=== PATIENT | female | born 1995 | race Caucasian/White ===

== ENCOUNTER 2016-12-09 15:58 | Emergency (ER) | payer BC ==
--- NOTE | 2016-12-09 17:03 | UC ---
Skin Complaint HPI - HPI Summary HPI Summary: TATTOO APPLIED TO LEFT ANKLE ON 11/21/16. SOME TIME LATER 11/28/16 RECEIVED CUT TO LEFT ANKLE FROM UNKNOWN SOURCE. CUT HAS HAD CHALLENGING TIME HEALING. TENDERNESS AND REDNESS WORSENING OVER LAST FEW DAYS. NO FEVER. POSSIBLE DISCHARGE. NO HISTORY OF MRSA. - History of Current Complaint Chief Complaint: UCSkin Time Seen by Provider: 12/09/16 16:35 Stated Complaint: LEFT FOOT CUT BY TATTOO Hx Obtained From: Patient Hx Last Menstrual Period: 11/27/16 Onset/Duration: Gradual Onset, Lasting Weeks Skin Exposure Onset/Duration: Days Ago Onset Severity: Mild Current Severity: Mild Location: Discrete Character: Redness, Painful Aggravating Factor(s): Touch Alleviating Factor(s): Nothing Associated Signs & Symptoms: Positive: Drainage, Tenderness, Red Streaks. Negative: Fever, Chills, Cough, Wheezing, Hoarseness, Throat Tightening, Rash, Bruising Related History: Trauma - Allergy/Home Medications Allergies/Adverse Reactions: Allergies Allergy/AdvReac Type Severity Reaction Status Date / Time No Known Allergies Allergy Verified 12/09/16 16:39 Review of Systems Constitutional: Negative Skin: Rash Eyes: Negative ENT: Negative Respiratory: Negative Cardiovascular: Negative Gastrointestinal: Negative Genitourinary: Negative Motor: Negative Neurovascular: Negative Musculoskeletal: Negative Neurological: Negative Psychological: Negative Is Patient Immunocompromised?: No All Other Systems Reviewed And Are Negative: Yes PMH/Surg Hx/FS Hx/Imm Hx Previously Healthy: Yes - Surgical History Surgical History: None - Family History Known Family History: Negative: Blood Disorder - Social History Occupation: Student Lives: With Family Alcohol Use: Weekly Alcohol Amount: weekends Substance Use Type: Marijuana Substance Use Comment - Amount & Last Used: occasional Smoking Status (MU): Never Smoked Tobacco Physical Exam Triage Information Reviewed: Yes Appearance: Well-Appearing, No Pain Distress, Well-Nourished Vital Signs: Initial Vital Signs Temp 97.6 F 12/09/16 16:35 Pulse 92 12/09/16 16:35 Resp 18 12/09/16 16:35 BP 123/73 12/09/16 16:35 Pulse Ox 100 12/09/16 16:35 Vital Signs Reviewed: Yes Eye Exam: Normal ENT Exam: Normal ENT: Positive: Normal ENT inspection Dental Exam: Normal Neck exam: Normal Respiratory Exam: Normal Cardiovascular Exam: Normal Cardiovascular: Positive: RRR, No Murmur, Pulses Normal Abdominal Exam: Normal Musculoskeletal Exam: Normal Neurological Exam: Normal Psychological Exam: Normal Skin Exam: Normal Course/Dx - Differential Diagnoses - Skin Complaint Differential Diagnoses: Cellulitis, MRSA - Diagnoses Provider Diagnoses: CELLULITIS LEFT ANKLE Discharge - Discharge Plan Condition: Stable Disposition: HOME Prescriptions: Cephalexin CAP* [Keflex CAP*] 500 mg PO TID #21 cap Patient Education Materials: Cellulitis (ED) Referrals: [facility] [place] [facility] [Outside]
--- NOTE | 2016-12-11 13:54 | UC ---
Progress - Progress Note Progress Note: wound culture : + MRSA please have the pt. stop Cephalaxin will ERX Bactrim DS 2 x per day x 10 days
== END 2016-12-09 17:05 | disposition home or self-care (01) ==
LOC: UCCORT 15:58
DX: L03.116 Cellulitis of left lower limb (principal); F12.90 Cannabis use, unspecified, uncomplicated; W45.8XXA Other foreign body or object entering through skin, initial encounter; Y93.89 Activity, other specified; Y92.89 Other specified places as the place of occurrence of the external cause
CPT/HCPCS: 87070; 87077; 87186; 87205; 99202; G0463

== ENCOUNTER 2017-04-13 11:47 | Emergency (ER) | payer BC ==
[2017-04-13 12:58] VITALS: BP 118/70
--- NOTE | 2017-04-13 13:21 | UC ---
Throat Pain/Nasal Nehemias HPI - HPI Summary HPI Summary: SORE THROAT X 2 DAYS + FEVER, CHILLS, BODY ACHES NO RUNNY NOSE, NO COUGH - History of Current Complaint Chief Complaint: UCGeneralIllness Stated Complaint: SORE THROAT,CHILLS Time Seen by Provider: 04/13/17 13:02 Hx Obtained From: Patient Hx Last Menstrual Period: 2months ago ?: No Onset/Duration: Gradual Onset, Still Present Severity: Severe Pain Intensity: 6 Cough: None Associated Signs & Symptoms: Positive: Fever. Negative: Dysphagia, Wheezing, Hoarseness, Sinus Discomfort, Nasal Discharge - Allergies/Home Medications Allergies/Adverse Reactions: Allergies Allergy/AdvReac Type Severity Reaction Status Date / Time No Known Allergies Allergy Verified 04/13/17 12:58 PMH/Surg Hx/FS Hx/Imm Hx Previously Healthy: Yes - Surgical History Surgical History: None - Family History Known Family History: Negative: Blood Disorder - Social History Alcohol Use: Weekly Alcohol Amount: weekends Substance Use Type: Marijuana Substance Use Comment - Amount & Last Used: occasional Smoking Status (MU): Never Smoked Tobacco Review of Systems Constitutional: Fever, Chills, Fatigue Skin: Negative Eyes: Negative ENT: Sore Throat Respiratory: Negative Cardiovascular: Negative Gastrointestinal: Negative Is Patient Immunocompromised?: No All Other Systems Reviewed And Are Negative: Yes Physical Exam Triage Information Reviewed: Yes Appearance: Well-Appearing, No Pain Distress, Well-Nourished Vital Signs: Initial Vital Signs Temp 99.2 F 04/13/17 12:54 Pulse 113 04/13/17 12:54 Resp 18 04/13/17 12:54 BP 118/70 04/13/17 12:54 Pulse Ox 100 04/13/17 12:54 Vital Signs Reviewed: Yes Eyes: Positive: Conjunctiva Clear ENT: Positive: Normal ENT inspection, Hearing grossly normal, Pharyngeal erythema, TMs normal, Tonsillar swelling, Tonsillar exudate. Negative: Nasal congestion, Nasal drainage, Trismus Neck: Positive: Supple, Nontender, No Lymphadenopathy Respiratory: Positive: Chest non-tender, Lungs clear, Normal breath sounds, No respiratory distress Cardiovascular: Positive: RRR, No Murmur, Pulses Normal Abdominal Exam: Normal Abdomen Description: Positive: Nontender, No Organomegaly, Soft Skin Exam: Normal Throat Pain/Nasal Course/Dx - Differential Dx/Diagnosis Provider Diagnoses: STREP PHARYNGITIS Discharge - Discharge Plan Condition: Stable Disposition: HOME Prescriptions: Amoxicillin PO (*) [Amoxicillin 875 MG (*)] 875 mg PO BID #20 tab Patient Education Materials: Strep Throat (ED) Forms: *School Release Referrals: No Primary Care Phys,NOPCP [Primary Care Provider] - If Needed
== END 2017-04-13 13:23 | disposition home or self-care (01) ==
LOC: UCCORT 11:47
DX: J02.0 Streptococcal pharyngitis (principal)
CPT/HCPCS: 87651; 99212; G0463

== ENCOUNTER 2017-10-15 17:11 | Emergency (ER) | payer BC ==
[2017-10-15 19:04] VITALS: BP 140/81
--- NOTE | 2017-10-15 19:35 | UC ---
Complaint Female HPI - HPI Summary HPI Summary: Patient states that she's had 2 bouts of a light green vaginal discharge with itching and odor over the past 2 days. She denies having any lesions, abdominal pain or fever. Patient is sexually active but reports she uses condoms. She denies any prior history of sexually transmitted disease. - History Of Current Complaint Chief Complaint: UCGU Stated Complaint: PERSONAL Time Seen by Provider: 10/15/17 19:27 Hx Obtained From: Patient Hx Last Menstrual Period: 09/20/17 Pain Intensity: 0 Aggravating Factor(s): Nothing Alleviating Factor(s): Nothing Associated Signs And Symptoms: Positive: Vaginal Discharge. Negative: Fever - Allergies/Home Medications Allergies/Adverse Reactions: Allergies Allergy/AdvReac Type Severity Reaction Status Date / Time No Known Allergies Allergy Verified 10/15/17 19:05 PMH/Surg Hx/FS Hx/Imm Hx Previously Healthy: Yes - Surgical History Surgical History: None - Family History Known Family History: Positive: None Negative: Blood Disorder - Social History Occupation: Student Lives: Dormitory/Roommates Alcohol Use: Weekly Alcohol Amount: weekends 5-10 Substance Use Type: Marijuana Substance Use Comment - Amount & Last Used: late September 2017 Smoking Status (MU): Never Smoked Tobacco - Immunization History Vaccination Up to Date: Yes Review of Systems Constitutional: Negative Skin: Negative Eyes: Negative ENT: Negative Respiratory: Negative Cardiovascular: Negative Gastrointestinal: Negative Genitourinary: Vaginal/Penile Itching, Vaginal/Penile Discharge Motor: Negative Neurovascular: Negative Musculoskeletal: Negative Neurological: Negative Psychological: Negative Is Patient Immunocompromised?: No All Other Systems Reviewed And Are Negative: Yes Physical Exam Triage Information Reviewed: Yes Appearance: Well-Appearing Vital Signs: Initial Vital Signs Temp 97.9 F 10/15/17 18:57 Pulse 102 10/15/17 18:57 Resp 20 10/15/17 18:57 BP 140/81 10/15/17 18:57 Pulse Ox 100 10/15/17 18:57 Vital Signs Reviewed: Yes Eyes: Positive: Conjunctiva Clear ENT: Positive: Normal ENT inspection Neck: Positive: Supple, Nontender, No Lymphadenopathy Respiratory: Positive: Lungs clear, Normal breath sounds Cardiovascular: Positive: RRR, No Murmur Abdomen Description: Positive: Nontender, No Organomegaly, Soft. Negative: Distended, Guarding Bowel Sounds: Positive: Present Pelvic Exam: Positive: Other - External exam is without lesions. Speculum exam : Thick white material in the vaginal vault but no odor. Cervix is closed. Cultures obtained. No adnexal or uterine tenderness on bimanual exam and no cervical motion tenderness. Musculoskeletal: Positive: ROM Intact Neurological: Positive: Alert Psychological: Positive: Age Appropriate Behavior Skin Exam: Normal Complaint Female Dx - Course Course Of Treatment: No acute abdomen. We will treat presumptively for yeast vaginitis and pelvic cultures are pending. - Differential Dx/Diagnosis Provider Diagnoses: Vaginitis Discharge - Sign-Out/Discharge Documenting (check all that apply): Patient Departure All imaging exams completed and their final reports reviewed: No Studies - Discharge Plan Condition: Stable Disposition: HOME Prescriptions: Fluconazole 150 MG (NF) [Diflucan 150 mg (NF)] 150 mg PO ONCE #1 tab Patient Education Materials: Vaginitis (ED) Referrals: [facility] [Outside] - 7 Days - Billing Disposition and Condition Condition: STABLE Disposition: Home
== END 2017-10-15 20:16 | disposition home or self-care (01) ==
LOC: UCCORT 17:11
DX: N76.0 Acute vaginitis (principal)
CPT/HCPCS: 87480; 87491; 87510; 87591; 87661; 99212; G0463

== ENCOUNTER 2017-11-28 09:13 | Emergency (ER) | payer BC ==
[2017-11-28 09:36] VITALS: BP 127/74
--- NOTE | 2017-11-28 09:43 | UC ---
Ear Complaint HPI - HPI Summary HPI Summary: Pt c/o right ear pain that began a "few days after" having a "cold" X 1 week. . - History of Current Complaint Chief Complaint: UCEar Stated Complaint: R EAR PAIN Time Seen by Provider: 11/28/17 09:19 Hx Obtained From: Patient Hx Last Menstrual Period: 10/24/17 ?: No Onset/Duration: Gradual Onset Severity Initially: Mild Severity Currently: Moderate Pain Intensity: 7 Associated Signs/Symptoms: Positive: URI Symptoms - Allergies/Home Medications Allergies/Adverse Reactions: Allergies Allergy/AdvReac Type Severity Reaction Status Date / Time No Known Allergies Allergy Verified 10/15/17 19:05 PMH/Surg Hx/FS Hx/Imm Hx Previously Healthy: Yes - Surgical History Surgical History: None - Family History Known Family History: Positive: None Negative: Blood Disorder - Social History Occupation: Student Lives: With Family Alcohol Use: Weekly Alcohol Amount: weekends 5-10 Substance Use Type: Marijuana Substance Use Comment - Amount & Last Used: 11/26/17 Smoking Status (MU): Never Smoked Tobacco Have You Smoked in the Last Year: No - Immunization History Vaccination Up to Date: Yes Review of Systems Constitutional: Negative Skin: Negative Eyes: Negative ENT: Ear Ache, Sinus Congestion Respiratory: Cough Cardiovascular: Negative Gastrointestinal: Negative Genitourinary: Negative Motor: Negative Neurovascular: Negative Musculoskeletal: Negative Neurological: Negative Psychological: Negative Is Patient Immunocompromised?: No All Other Systems Reviewed And Are Negative: Yes Physical Exam Triage Information Reviewed: Yes Appearance: Well-Appearing Vital Signs: Initial Vital Signs Temp 98.9 F 11/28/17 09:30 Pulse 81 11/28/17 09:30 Resp 20 11/28/17 09:30 BP 127/74 11/28/17 09:30 Pulse Ox 100 11/28/17 09:30 Vital Signs Reviewed: Yes Eye Exam: Normal ENT Exam: Other ENT: Positive: Nasal congestion, TM bulging - right TM, small amount of fluid leaking through right TM. Clear fluid, TM is shiny and clear Dental Exam: Normal Neck exam: Normal Respiratory Exam: Normal Cardiovascular Exam: Normal Musculoskeletal Exam: Normal Neurological Exam: Normal Psychological Exam: Normal Skin Exam: Normal Ear Complaint Course/Dx - Differential Dx/Diagnosis Differential Diagnosis/HQI/PQRI: Cerumen Impaction, Otitis Media, Perforated TM Provider Diagnoses: right serous otitis media Discharge - Sign-Out/Discharge Documenting (check all that apply): Patient Departure All imaging exams completed and their final reports reviewed: No Studies - Discharge Plan Condition: Stable Disposition: HOME Prescriptions: Pseudoephedrine TAB* [Sudafed TAB*] 60 mg PO Q12H #14 tab Patient Education Materials: Serous Otitis Media (ED) Referrals: [facility] [Outside] - If Needed No Primary Care Phys,NOPCP [Primary Care Provider] - - Billing Disposition and Condition Condition: STABLE Disposition: Home
== END 2017-11-28 09:52 | disposition home or self-care (01) ==
LOC: UCCORT 09:13
DX: H65.91 Unspecified nonsuppurative otitis media, right ear (principal); F12.90 Cannabis use, unspecified, uncomplicated
CPT/HCPCS: 99212; G0463

== ENCOUNTER 2018-04-20 08:12 | Emergency (ER) | payer BC ==
[2018-04-20 09:00] VITALS: BP 131/71
--- NOTE | 2018-04-20 09:58 | UC ---
Eye Complaint HPI - HPI Summary HPI Summary: This is a patient who experienced mild left upper eyelid swelling since yesterday. She states this morning it was increase in swelling. She's had no recent illness. Did take Benadryl at home without improvement. - History of Current Complaint Chief Complaint: UCEye Stated Complaint: LEFT EYE COMPLAINT Time Seen by Provider: 04/20/18 09:57 Hx Obtained From: Patient Hx Last Menstrual Period: 03/2018 ?: No Onset/Duration: Gradual Onset Timing: Constant Severity Initially: Mild Severity Currently: Mild Pain Intensity: 0 Location of Injury: Eye Lid (upper) - Patient denies pain to the area only swelling of the upper eyelid Aggravating Factor(s): Nothing Alleviating Factor(s): Nothing Associated Signs And Symptoms: Positive: Negative - Is no loss - Risk Factors Penetrating Injury Risk Factor: Negative Globe Rupture Risk Factors: Negative Acute Glaucoma Risk Factors: Negative - Allergies/Home Medications Allergies/Adverse Reactions: Allergies Allergy/AdvReac Type Severity Reaction Status Date / Time No Known Allergies Allergy Verified 04/20/18 08:56 Home Medications: Home Medications diPHENhydraMINE PO* [Benadryl PO 25 MG TAB*] 25 mg PO Q6H PRN 04/20/18 [History Confirmed 04/20/18] PMH/Surg Hx/FS Hx/Imm Hx Previously Healthy: Yes - Surgical History Surgical History: None - Family History Known Family History: Positive: None Negative: Blood Disorder - Social History Occupation: Student Lives: Dormitory/Roommates Alcohol Use: Weekly Alcohol Amount: weekends Substance Use Type: None Substance Use Comment - Amount & Last Used: 11/26/17 Smoking Status (MU): Never Smoked Tobacco Have You Smoked in the Last Year: No - Immunization History Vaccination Up to Date: Yes Review of Systems All Other Systems Reviewed And Are Negative: Yes Constitutional: Positive: Negative Skin: Positive: Negative Eyes: Positive: Other - Left upper eyelid is mildly edematous but has not had any redness to the area. The patient states her vision is normal. She does not wear contact lenses. No drainage from her eyes. ENT: Positive: Negative Respiratory: Positive: Negative Cardiovascular: Positive: Negative Gastrointestinal: Positive: Negative Genitourinary: Positive: Negative Physical Exam Triage Information Reviewed: Yes Appearance: Well-Appearing, No Pain Distress, Well-Nourished Vital Signs: Initial Vital Signs Temp 98.0 F 04/20/18 08:57 Pulse 83 04/20/18 08:57 Resp 15 04/20/18 08:57 BP 131/71 04/20/18 08:57 Pulse Ox 100 04/20/18 08:57 Vital Signs Reviewed: Yes Eye Exam: Normal Eyes: Positive: Conjunctiva Clear. Negative: Discharge - PERRRLA EOMI ENT Exam: Normal Neck exam: Normal Respiratory Exam: Normal Cardiovascular Exam: Normal Musculoskeletal Exam: Normal Neurological Exam: Normal Psychological Exam: Normal Skin: Positive: Other - Left upper eyelid is mildly edematous, no erythema, no drainage. Underneath the left upper eyelid there is one small papule however it is not raised it is surrounded by mild erythema. At this point in time I believe it may be an early stye. It does not look ulcerated presently. Eye Complaint Course/Dx - Course Course Of Treatment: She has been comfortable here. I advised her to follow up at the [facility] for recheck in 24-48 hours if any worsening symptoms. - Differential Dx/Diagnosis Differential Diagnosis/HQI/PQRI: Other - Stye Provider Diagnosis: Stye Discharge - Sign-Out/Discharge Documenting (check all that apply): Patient Departure All imaging exams completed and their final reports reviewed: No Studies - Discharge Plan Condition: Good Disposition: HOME Patient Education Materials: Akbar (ED) Forms: *School Release Referrals: No Primary Care Phys,NOPCP [Primary Care Provider] - [employer] [Steve.BUSINESS, APPLICATION, OTHER] - Additional Instructions: Apply cold co,presses to eyelid several times during the day. Follow up at the [facility] if no improvement in 2-3 days - Billing Disposition and Condition Condition: GOOD Disposition: Home
== END 2018-04-20 10:18 | disposition home or self-care (01) ==
LOC: UCCORT 08:12
DX: H00.014 Hordeolum externum left upper eyelid (principal)
CPT/HCPCS: 99211; G0463

== ENCOUNTER 2018-06-05 14:04 | Emergency (ER) | payer BC ==
[2018-06-05 15:36] VITALS: BP 122/68
--- NOTE | 2018-06-05 15:45 | UC ---
Throat Pain/Nasal Nehemias HPI - HPI Summary HPI Summary: Pt c/o sudden onset of ST, blisters on soft palate and white spots on tosils. - History of Current Complaint Chief Complaint: UCGeneralIllness Stated Complaint: SORE THROAT Time Seen by Provider: 06/05/18 15:39 Hx Obtained From: Patient Hx Last Menstrual Period: approx 1 wk ago. ?: No Onset/Duration: Sudden Onset Severity: Moderate Pain Intensity: 6 Cough: None Associated Signs & Symptoms: Positive: Dysphagia - Epiglottits Risk Factors Epiglottis Risk Factors: Sudden Onset - Allergies/Home Medications Allergies/Adverse Reactions: Allergies Allergy/AdvReac Type Severity Reaction Status Date / Time No Known Allergies Allergy Verified 06/05/18 15:31 PMH/Surg Hx/FS Hx/Imm Hx Previously Healthy: Yes - Surgical History Surgical History: None - Family History Known Family History: Positive: Cardiac Disease Negative: Blood Disorder - Social History Occupation: Student Lives: Dormitory/Roommates Alcohol Use: Weekly Alcohol Amount: weekends Substance Use Type: None Substance Use Comment - Amount & Last Used: 11/26/17 Smoking Status (MU): Never Smoked Tobacco Have You Smoked in the Last Year: No - Immunization History Vaccination Up to Date: Yes Review of Systems All Other Systems Reviewed And Are Negative: Yes Constitutional: Positive: Negative Skin: Positive: Negative Eyes: Positive: Negative ENT: Positive: Sore Throat Respiratory: Positive: Negative Cardiovascular: Positive: Negative Gastrointestinal: Positive: Negative Genitourinary: Positive: Negative Motor: Positive: Negative Neurovascular: Positive: Negative Musculoskeletal: Positive: Negative Neurological: Positive: Negative Psychological: Positive: Negative Is Patient Immunocompromised?: No Physical Exam Triage Information Reviewed: Yes Appearance: Well-Appearing Vital Signs: Initial Vital Signs Temp 98.2 F 06/05/18 15:32 Pulse 98 06/05/18 15:32 Resp 16 06/05/18 15:32 BP 122/68 06/05/18 15:32 Pulse Ox 98 06/05/18 15:32 Vital Signs Reviewed: Yes Eye Exam: Normal ENT: Positive: Tonsillar exudate Dental Exam: Normal Neck exam: Normal Respiratory Exam: Normal Throat Pain/Nasal Course/Dx - Differential Dx/Diagnosis Provider Diagnosis: Mouth ulcers, Sore throat (viral) Discharge - Sign-Out/Discharge Documenting (check all that apply): Patient Departure All imaging exams completed and their final reports reviewed: No Studies - Discharge Plan Condition: Stable Disposition: HOME Prescriptions: ValACYclovir (*) [Valtrex 1 GM(*)] 1 gm PO Q12H #14 tab Patient Education Materials: Oral Mucositis (ED) Referrals: [facility] [place] [facility] [Outside] - If Needed No Primary Care Phys,NOPCP [Primary Care Provider] - - Billing Disposition and Condition Condition: STABLE Disposition: Home
== END 2018-06-05 16:19 | disposition home or self-care (01) ==
LOC: UCCORT 14:04
DX: J02.9 Acute pharyngitis, unspecified (principal); K13.79 Other lesions of oral mucosa
CPT/HCPCS: 87651; 99212; G0463

== ENCOUNTER 2018-12-17 12:46 | Emergency (ER) | payer BC ==
[2018-12-17 14:44] VITALS: BP 119/72
--- NOTE | 2018-12-17 15:02 | UC ---
Eye Complaint HPI - HPI Summary HPI Summary: Pt presents with c/o sudden onset of right eye swelling and redness that began this morning after taking a shower . Pt states that right upper eye lid was swollen and then spontaneously resolved after applying warm and cold pack to eye prior to arrival. pt denies pain, swelling or drainage at time of PE - History of Current Complaint Chief Complaint: UCEye Stated Complaint: RT EYE CONCERN Time Seen by Provider: 12/17/18 14:54 Hx Obtained From: Patient Hx Last Menstrual Period: 12/14/18 ?: No Onset/Duration: Sudden Onset, Resolved Severity Initially: Mild Severity Currently: None Pain Intensity: 0 Aggravating Factor(s): Nothing Alleviating Factor(s): Nothing Associated Signs And Symptoms: Positive: Swelling - Risk Factors Penetrating Injury Risk Factor: Negative Globe Rupture Risk Factors: Negative Acute Glaucoma Risk Factors: Negative Optic Artery Occlusion Risk Factors: Negative - Allergies/Home Medications Allergies/Adverse Reactions: Allergies Allergy/AdvReac Type Severity Reaction Status Date / Time No Known Allergies Allergy Verified 12/17/18 14:44 PMH/Surg Hx/FS Hx/Imm Hx Previously Healthy: Yes - Surgical History Surgical History: None - Family History Known Family History: Positive: Cardiac Disease Negative: Blood Disorder - Social History Occupation: Student - [employer] Lives: Dormitory/Roommates Alcohol Use: Weekly Alcohol Amount: weekends Substance Use Type: None Substance Use Comment - Amount & Last Used: 11/26/17 Smoking Status (MU): Never Smoked Tobacco Have You Smoked in the Last Year: No - Immunization History Vaccination Up to Date: Yes Review of Systems All Other Systems Reviewed And Are Negative: Yes Constitutional: Positive: Negative Skin: Positive: Negative Eyes: Positive: Eye Redness, Other - swelling of right upper eyelid that has resolved ENT: Positive: Negative Respiratory: Positive: Negative Cardiovascular: Positive: Negative Gastrointestinal: Positive: Negative Genitourinary: Positive: Negative Motor: Positive: Negative Neurovascular: Positive: Negative Musculoskeletal: Positive: Negative Neurological: Positive: Negative Psychological: Positive: Negative Is Patient Immunocompromised?: No Physical Exam Triage Information Reviewed: Yes Appearance: Well-Appearing Vital Signs: Initial Vital Signs Temp 97.9 F 12/17/18 14:40 Pulse 75 12/17/18 14:40 Resp 16 12/17/18 14:40 BP 119/72 12/17/18 14:40 Pulse Ox 100 12/17/18 14:40 Vital Signs Reviewed: Yes Eye Exam: Normal Eyes: Positive: Conjunctiva Clear, Other: - no swelling of upper or lower eye lid bilateral ENT Exam: Normal Dental Exam: Normal Neck exam: Normal Respiratory Exam: Normal Musculoskeletal Exam: Normal Neurological Exam: Normal Psychological Exam: Normal Skin Exam: Normal Eye Complaint Course/Dx - Differential Dx/Diagnosis Differential Diagnosis/HQI/PQRI: Other - eye lid swelling Provider Diagnosis: Meibomian gland dysfunction (MGD) of right upper eyelid Discharge ED - Sign-Out/Discharge Documenting (check all that apply): Patient Departure All imaging exams completed and their final reports reviewed: No Studies - Discharge Plan Condition: Stable Disposition: HOME Patient Education Materials: Blepharitis (ED) Referrals: [facility] [place] [facility] [Outside] - If Needed No Primary Care Phys,NOPCP [Primary Care Provider] - - Billing Disposition and Condition Condition: STABLE Disposition: Home
== END 2018-12-17 15:11 | disposition home or self-care (01) ==
LOC: UCCORT 12:46
DX: H02.881 Meibomian gland dysfunction right upper eyelid (principal)
CPT/HCPCS: 99211; G0463